=== PATIENT | female | born 1965 | race Caucasian/White ===

== ENCOUNTER → 2016-05-10 | Outpatient (CLI) | payer OTHER ==
[~2016-05-10] MED LIST: ADAL40KI; B-COCAP2 PO; CALC1TAB27 PO; CALCTAB13 PO; CHOL100027 PO; FLUT1INH INH; FOLI1TAB7 PO; ONDA4TAB65 PO; POTAPOW29 PO; ZNTT/150 PO; [UNRECOGNIZED DRUG - CODE] PO
--- NOTE | 2016-05-11 08:02 | MAMMOGRAPHY REPORT ---
BILATERAL DIGITAL SCREENING MAMMOGRAM TOMOSYNTHESIS WITH CAD: 05/10/2016 CLINICAL HISTORY: Routine screening examination. TECHNIQUE: Breast tomosynthesis in addition to standard 2D mammography was performed. Current study was also evaluated with a Computer Aided Detection (CAD) system. COMPARISON: Comparison is made to exams dated: 05/08/2015 mammogram, 04/11/2014 mammogram, 04/10/2013 carli mogram, and 04/05/2011 mammogram - [facility]. BREAST COMPOSITION: The tissue of both breasts is heterogeneously dense, which may obscure small ma sses. FINDINGS: An asymmetry in the posterior, medial right breast on the CC view appears very similar to the 03/28/2008 mammogram, therefore likely benign. No new suspicious mass, architectural distortion or cluster of microcalcifications is seen. IMPRESSION: ACR BI-RADS CATEGORY 1: NEGATIVE There is no mammographic evidence of malignancy. A 1 year screening mammogram is recommended. The p atient will receive written notification of the results. Approximately 10% of breast cancers are not detected with mammography. A negative mammographic repor t should not delay biopsy if a clinically suggestive mass is present. Ellen Villeda M.D. ay/:05/10/2016 22:30:39 Program Technician: Cinthya PRETTY(Sonya)(Twyla), [facility] letter sent: Normal 1/2 BI-RADS Code: ACR BI-RADS Category 1: Negative
== END | disposition home or self-care (01) ==
LOC: C.MAMM 13:08
PROVIDERS: ATTEND Obstetrics & Gynecology
DX: Z12.31 Encounter for screening mammogram for malignant neoplasm of breast (principal)

== ENCOUNTER → 2016-08-09 | Outpatient (CLI) | payer OTHER ==
[2016-08-09 17:44] LABS: BASO % 0.5 %; BASO ABS # 0.07 K/uL (0-0.2); COMPLETE YES; EOS % 1.9 %; HEMATOCRIT 43.5 % (37-47); IG% 0.2 %; LYMPH % 28.8 %; LYMPH ABS # 3.67 K/uL (1.2-3.4); MEAN CELL VOLUME 92.8 fL (80-100); MEAN CORPUSCULAR HEMOGLOBIN 30.1 pg (25-34); MEAN CORPUSCULAR HGB CONC 32.4 g/dl (32-36); MEAN PLATELET VOLUME 10.4 fL (7.4-10.4); MONO % 5.6 %; PLATELET COUNT 397 K/uL (130-400); RED BLOOD COUNT 4.69 M/uL (4.2-5.4); WHITE BLOOD COUNT 12.76 K/uL (4.8-10.8)
[2016-08-09 17:54] LABS: URINE APPEARANCE CLEAR (CLEAR); URINE BILIRUBIN NEG (NEG); URINE COLOR YELLOW; URINE EPITHELIAL CELL AUTO 20-30 /lpf (0-5); URINE NITRITE NEG (NEG); URINE SPECIFIC GRAVITY 1.024 (1.000-1.030); UROBILINOGEN NEG (NEG); ZZUR CULT IF INDIC CLEAN CATCH NO
[2016-08-09 17:55] LABS: MANUAL MICROSCOPIC REQUIRED? NO; REVIEW REQ? NO
[2016-08-09 18:03] LABS: CALCIUM 8.8 mg/dl (8.5-10.1)
[2016-08-09 18:05] LABS: ALB/GLOB RATIO 0.7 (0.9-2); ALKALINE PHOSPHATASE 121 U/L (45-117); ALT/SGPT 27 U/L (12-78); AST/SGOT 21 U/L (15-37); BLOOD UREA NITROGEN 23 mg/dl (7-18); CARBON DIOXIDE 28 mmol/L (21-32); CHLORIDE 104 mmol/L (98-107); GLUCOSE 103 mg/dl (70-99); SODIUM 139 mmol/L (136-145)
[2016-08-09 18:32] LABS: LYME DISEASE AB IGG NEG (NEG); LYME DISEASE AB IGM NEG (NEG)
== END | disposition home or self-care (01) ==
LOC: C.LABBFT 12:30
PROVIDERS: ATTEND Physician Assistant Medical
DX: D64.9 Anemia, unspecified (principal); K50.919 Crohn's disease, unspecified, with unspecified complications; E03.9 Hypothyroidism, unspecified; E55.9 Vitamin D deficiency, unspecified; W57.XXXA Bitten or stung by nonvenomous insect and other nonvenomous arthropods, initial encounter

== ENCOUNTER → 2016-09-29 | Outpatient (CLI) | payer OTHER ==
[2016-10-04 09:01] LABS: CREATININE UR 118 MG/DL (20-320)
== END | disposition home or self-care (01) ==
LOC: C.LABBFT 08:25
PROVIDERS: ATTEND Internal Medicine
DX: R79.9 Abnormal finding of blood chemistry, unspecified (principal); Z11.59 Encounter for screening for other viral diseases

== ENCOUNTER → 2016-11-22 | Outpatient (CLI) | payer OTHER | END | disposition home or self-care (01) | LOC: C.LAB1850 13:59 | PROVIDERS: ATTEND Internal Medicine Pulmonary Disease | DX: J92.9 Pleural plaque without asbestos (principal); J98.4 Other disorders of lung ==

== ENCOUNTER → 2017-02-14 | Outpatient (CLI) | payer OTHER ==
[~2017-02-14] MED LIST changes: -FOLI1TAB7 PO; +FOLI1TAB8 PO
--- NOTE | 2017-02-14 13:11 | DIAGNOSTIC IMAGING REPORT ---
CHEST 2 VIEWS ROUTINE CLINICAL HISTORY: J90 Pleural effusion COMPARISON STUDY: 05/08/2015 FINDINGS: The cardiac and sternal contours remain stable. There is no failure. There is stable right-sided pleural thickening/fluid. There are linear opacities at both lung bases likely representing subsegmental atelectasis/scarring. Postsurgical changes are present within the cervical spine. IMPRESSION: 1. Persistent right-sided pleural fluid/thickening 2. Linear by basilar opacities, similar to the prior study and likely reflecting subsegmental atelectasis/scarring Electronically signed by: Arturo Toledo M.D. 02/14/2017 1:10 PM Dictated Date/Time: 02/14/2017 1:08 PM
== END | disposition home or self-care (01) ==
LOC: C.RAD1850 12:50
PROVIDERS: ATTEND Physician Assistant Medical
DX: J90 Pleural effusion, not elsewhere classified (principal); R91.8 Other nonspecific abnormal finding of lung field

== ENCOUNTER → 2017-05-26 | Outpatient (CLI) | payer OTHER ==
[~2017-05-26] MED LIST changes: +RANI150T85 PO; -ZNTT/150 PO
--- NOTE | 2017-05-30 12:41 | MAMMOGRAPHY REPORT ---
BILATERAL DIGITAL SCREENING MAMMOGRAM TOMOSYNTHESIS WITH CAD: 05/26/2017 CLINICAL HISTORY: Routine screening. Patient has no complaints. TECHNIQUE: Breast tomosynthesis in addition to standard 2D mammography was performed. Current study was also evaluated with a Computer Aided Detection (CAD) system. COMPARISON: Comparison is made to exams dated: 05/10/2016 mammogram, 05/08/2015 mammogram, 04/11/2014 mamm ogram, 04/10/2013 mammogram, 04/06/2012 mammogram, and 04/05/2011 mammogram - [facility] BREAST COMPOSITION: The tissue of both breasts is heterogeneously dense, which may obscure small mas ses. FINDINGS: No suspicious masses, calcifications, or areas of architectural distortion are noted in ei ther breast. There has been no significant interval change compared to prior exams. IMPRESSION: ACR BI-RADS CATEGORY 1: NEGATIVE There is no mammographic evidence of malignancy. A 1 year screening mammogram is recommended. The pa tient will receive written notification of the results. Approximately 10% of breast cancers are not detected with mammography. A negative mammographic report should not delay biopsy if a clinically suggestive mass is present. Daphne Marrero M.D. ah/:05/26/2017 15:47:00 Iron Installer: Mireya PRETTY(Sonya)(M), [facility] letter sent: Normal 1/2 BI-RADS Code: ACR BI-RADS Category 1: Negative
== END | disposition home or self-care (01) ==
LOC: C.MAMM 12:11
PROVIDERS: ATTEND Obstetrics & Gynecology
DX: Z12.31 Encounter for screening mammogram for malignant neoplasm of breast (principal)